=== PATIENT | female | born 1950 | race Caucasian/White ===

== ENCOUNTER 2024-08-04 23:57 | Emergency (ER) | payer OTHER ==
[~2024-08-04] VITALS: Ht 149.9 cm; Wt 113.4 kg
[2024-08-05] MEDS ORDERED: LISI10TA29 (00:26)
[2024-08-05] MEDS ORDERED: [UNRECOGNIZED DRUG - CODE] (00:26)
[2024-08-05] MEDS ORDERED: FERR324T11 (00:26)
[2024-08-05] MEDS ORDERED: GLIP10TA11 (00:26)
[2024-08-05 00:55] LABS: BASOPHILS # (AUTO) 0.1 K/UL (0.0-0.2); BASOPHILS % (AUTO) 0.5 % (0.0-2.0); DIFFERENTIAL COMMENT 0; EOSINOPHILS # (AUTO) 0.3 K/uL (0.0-0.7); EOSINOPHILS % (AUTO) 2.6 % (0.0-7.0); HEMATOCRIT 32.9 % (31.2-41.9); HEMOGLOBIN 10.1 g/dL (10.9-14.3); LYMPHOCYTES # (AUTO) 2.6 K/uL (0.8-4.8); LYMPHOCYTES % (AUTO) 24.9 % (20.5-51.5); MEAN CORPUSCULAR HEMOGLOBIN 20.3 uug (24.7-32.8); MEAN CORPUSCULAR HGB CONC 31 g/dL (32.3-35.6); MONOCYTES # (AUTO) 0.8 K/uL (0.1-1.30); NEUTROPHILS # (AUTO) 6.6 K/uL (1.8-8.9); PLATELET COUNT (AUTO) 300 K/uL (179-408); RED BLOOD CELL COUNT(AUTO) 4.98 MIL/uL (3.63-4.92); RED CELL DISTRIBUTION WIDTH 17.2 % (12.3-17.7); WHITE BLOOD COUNT (AUTO) 10.3 K/uL (3.8-11.8)
[2024-08-05 01:07] LABS: CALCIUM 9.3 mg/dL (8.5-10.1); CARBON DIOXIDE 27 mmol/L (21-32); CHLORIDE 104 mmol/L (98-107); CREATININE 0.7 mg/dL (0.6-1.3); GLUCOSE 151 mg/dL (74-106); SODIUM SERUM 140 mmol/L (136-145); UREA NITROGEN, BLOOD 16 mg/dL (7-18)
[2024-08-05 01:19] LABS: ALANINE AMINOTRANSFERASE 24 U/L (14-59); ALBUMIN 3.4 g/dL (3.4-5.0); ALKALINE PHOSPHATASE 117 U/L (50-136); ASPARTATE AMINOTRANSFERASE 19 U/L (15-37); BILIRUBIN,DIRECT 0.1 mg/dL (0.0-0.2); BILIRUBIN,TOTAL 0.4 mg/dL (0.2-1.0); NT-PRO BNP 30 pg/mL (0-125); TOTAL PROTEIN, SERUM 8.1 g/dL (6.4-8.2)
[2024-08-05 03:33] VITALS: BP 136/60; TEMP 97.8; O2SAT 100
== END 2024-08-05 03:34 | disposition home or self-care (01) ==
LOC: ER 08-05 00:39
DX: R06.00 Dyspnea, unspecified (principal); R07.9 Chest pain, unspecified; E11.9 Type 2 diabetes mellitus without complications; E78.5 Hyperlipidemia, unspecified; Z79.84 Long term (current) use of oral hypoglycemic drugs
CPT/HCPCS: 36415; 71045; 84484; 85025; A4606; A4663

== ENCOUNTER 2025-02-07 16:17 | Inpatient (IN) | payer OTHER, MEDICARE ==
[~2025-02-07] VITALS: Ht 147.3 cm; Wt 90.7 kg
[~2025-02-07 16:17] MED LIST: FERR324T11 PO; GLIP10TA11; LISI10TA29; [UNRECOGNIZED DRUG - CODE]
[2025-02-07] MEDS ORDERED: LOSA25TA27 PO (16:40)
[2025-02-07] MEDS ORDERED: GLIP5TAB26 PO (16:40)
[2025-02-07 16:52] LABS: PLATELET COUNT (AUTO) 286 K/uL (179-408); RED BLOOD CELL COUNT(AUTO) 4.62 MIL/uL (3.63-4.92); RED CELL DISTRIBUTION WIDTH 14.0 % (12.3-17.7); WHITE BLOOD COUNT (AUTO) 10.9 K/uL (3.8-11.8)
[2025-02-07] MEDS ORDERED: ONDA4TAB5 PO (16:56)
[2025-02-07] MEDS ORDERED: FAMO-132 PO (16:56)
[2025-02-07] MEDS ORDERED: POLY17PO4 PO (16:56)
[2025-02-07] MEDS ORDERED: LIDOCAINE VISCUS 2% 15 ML UDC ONE (17:03)
[2025-02-07] MEDS ORDERED: ONDANSETRON 4 MG/2 ML VIAL ONE (17:03)
[2025-02-07] MEDS ORDERED: MAG HYDROX/AL HYDROX/SIMETH 30 ML LIQUID UDC ONE (17:03)
[2025-02-07] MEDS ORDERED: FAMOTIDINE. 20 MG/2 ML VIAL IV ONE (17:04)
[2025-02-07 17:19] LABS: ASPARTATE AMINOTRANSFERASE 18 U/L (15-37); CREATININE 0.7 mg/dL (0.6-1.3); SODIUM SERUM 139 mmol/L (136-145); TOTAL PROTEIN, SERUM 8.0 g/dL (6.4-8.2); UREA NITROGEN, BLOOD 17 mg/dL (7-18)
[2025-02-07] MEDS: IV NORMAL SALINE 1000 ML BAG IV ONE ×2 (17:21→18:49)
[2025-02-07] MEDS: FAMOTIDINE. 20 MG/2 ML VIAL IV ONE (17:21)
[2025-02-07] MEDS: LIDOCAINE VISCUS 2% 15 ML UDC MM ONE (17:22)
[2025-02-07] MEDS: ONDANSETRON 4 MG/2 ML VIAL IV ONE ×2 (17:22→18:56)
[2025-02-07] MEDS: MAG HYDROX/AL HYDROX/SIMETH 30 ML LIQUID UDC PO ONE (17:22)
[2025-02-07 18:09] LABS: *BILIRUBIN,URIN NEGATIVE (NEGATIVE); *BLOOD, URINE 3+ (NEGATIVE); *CLARITY,URINE CLEAR (CLEAR); *COLOR,URINE YELLOW (YELLOW); *KETONES,URINE NEGATIVE (NEGATIVE); *PROTEIN,URINE 1+ (NEGATIVE); *UROBILINOGEN,URINE 0.2 E.U./dl (NORMAL); LEUKOCYTE ESTERASE ,URINE 3+ (NEGATIVE); NITRITE, URINE POSITIVE (NEGATIVE); UGLUCOSE NEGATIVE (NEGATIVE)
[2025-02-07] MEDS: METRONIDAZOLE 500 MG/NS 100 ML PIGGYBACK IV ONE (18:30)
[2025-02-07] MEDS ORDERED: LIDOCAINE 2% (GLYDO= UROJET) 10 ML JELLY MM ONE (18:31)
[2025-02-07] MEDS ORDERED: DEXTROSE 50% 50 ML DISP.SYRIN IV PRN (18:45)
[2025-02-07] MEDS: BLOOD SUGAR DIAGNOSTIC 1 EACH STRIP VI SCH (18:45)
[2025-02-07] MEDS ORDERED: ACETAMINOPHEN 325 MG TABLET PO PRN (18:45)
[2025-02-07] MEDS ORDERED: CEFTRIAXONE /D5W 50ML IVPB **ER PYXIS IV ONE (18:55)
[2025-02-07] MEDS ORDERED: MORPHINE SULFATE 4 MG/1 ML DISP.SYRIN ONE (18:56)
[2025-02-07] MEDS: MORPHINE SULFATE 4 MG/1 ML DISP.SYRIN IV ONE (18:58)
[2025-02-07] MEDS: CEFTRIAXONE 1 G in IV DEXTROSE 5% 50 ML IV ONE (19:00)
[2025-02-07] MEDS ORDERED: METRONIDAZOLE 500 MG/NS 100ML 100 ML IV ONE (19:51)
[2025-02-07] MEDS ORDERED: CEFEPIME HCL 1 G in IV DEXTROSE 5% 50 ML IV SCH (22:00)
[2025-02-07] MEDS ORDERED: SEVOFLURANE 250 ML BOTTLE ONE (22:10)
[2025-02-07] MEDS ORDERED: LIDOCAINE HCL 1% 20 ML VIAL ONE (22:16)
[2025-02-07] MEDS ORDERED: BUPIVACAINE/EPI PF 0.25% 10 ML VIAL IJ ONE (22:16)
[2025-02-07] MEDS ORDERED: PROPOFOL 200 MG/20 ML BOTTLE ONE (23:00)
[2025-02-07] MEDS ORDERED: FENTANYL CITRATE 250 MCG/5 ML AMPUL ONE (23:09)
[2025-02-07] MEDS ORDERED: SUCCINYLCHOLINE CHLORIDE 200 MG/10 ML VIAL ONE (23:09)
[2025-02-07] MEDS ORDERED: ROCURONIUM BROMIDE 50 MG/5 ML VIAL ONE (23:09)
[2025-02-08] MEDS ORDERED: METRONIDAZOLE 500 MG/NS 100ML 100 ML IV ONE (00:12)
[2025-02-08] MEDS ORDERED: ONDANSETRON 4 MG/2 ML VIAL IV PRN (01:45)
[2025-02-08] MEDS ORDERED: MEPERIDINE 25 MG/1 ML DISP.SYRIN IV PRN (01:45)
[2025-02-08] MEDS: IV NS 1000 ML 1,000 ML IV SCH (04:36)
[2025-02-08 06:00] VITALS: BP 132/69; TEMP 98.4; O2SAT 96
[2025-02-08] MEDS: INSULIN REGULAR, HUMAN 1000 UNIT/10 ML VIAL SQ PRN (06:09)
[2025-02-08 06:54] LABS: PLATELET COUNT (AUTO) 252 K/uL (179-408); RED BLOOD CELL COUNT(AUTO) 4.29 MIL/uL (3.63-4.92); RED CELL DISTRIBUTION WIDTH 13.8 % (12.3-17.7); WHITE BLOOD COUNT (AUTO) 14.1 K/uL (3.8-11.8)
[2025-02-08 07:10] LABS: ASPARTATE AMINOTRANSFERASE 19 U/L (15-37); CREATININE 0.9 mg/dL (0.6-1.3); SODIUM SERUM 142 mmol/L (136-145); TOTAL PROTEIN, SERUM 7.0 g/dL (6.4-8.2); UREA NITROGEN, BLOOD 11 mg/dL (7-18)
[2025-02-08] MEDS: CEFEPIME HCL 1 G in IV DEXTROSE 5% 50 ML IV ONE (07:30)
[2025-02-08] MEDS: CEFEPIME HCL 1 G in IV DEXTROSE 5% 50 ML IV SCH (09:11)
[2025-02-08 11:36] VITALS: BP 116/45; TEMP 98.4; O2SAT 97
[2025-02-08 15:36] VITALS: BP 140/62; TEMP 98.7; O2SAT 98
[2025-02-08 16:00] VITALS: O2SAT 98
[2025-02-08 19:10] VITALS: BP 121/43; TEMP 97.9; O2SAT 98
[2025-02-09 05:37] VITALS: O2SAT 98
[2025-02-09 06:36] VITALS: BP 116/44; TEMP 99.3; O2SAT 96
[2025-02-09 06:41] LABS: PLATELET COUNT (AUTO) 225 K/uL (179-408); RED BLOOD CELL COUNT(AUTO) 4.11 MIL/uL (3.63-4.92); RED CELL DISTRIBUTION WIDTH 13.4 % (12.3-17.7); WHITE BLOOD COUNT (AUTO) 10.6 K/uL (3.8-11.8)
[2025-02-09 06:53] LABS: CREATININE 0.5 mg/dL (0.6-1.3); SODIUM SERUM 144 mmol/L (136-145); UREA NITROGEN, BLOOD 11 mg/dL (7-18)
[2025-02-09] MEDS: POTASSIUM CHLORIDE 50 ML IV SCH (10:11)
[2025-02-09] MEDS ORDERED: CEFEPIME HCL 1 G in IV DEXTROSE 5% 50 ML IV SCH (11:00)
[2025-02-09] MEDS: MORPHINE SULFATE 2 MG/1 ML DISP.SYRIN IVP PRN (11:00)
[2025-02-09 11:59] VITALS: BP 126/60; TEMP 98.1; O2SAT 98
[2025-02-09] MEDS: CEFEPIME HCL 1 G in IV DEXTROSE 5% 50 ML IV SCH (14:34)
[2025-02-09 16:00] VITALS: BP 120/44; TEMP 98.5; O2SAT 99
[2025-02-09 16:15] VITALS: O2SAT 99
[2025-02-09] MEDS: SODIUM PHOSPHATE MM 15 MMOL in IV NORMAL SALINE 250 ML IV ONE (17:18)
[2025-02-09 19:48] VITALS: BP 122/52; TEMP 98.2; O2SAT 97
[2025-02-10 04:53] VITALS: BP 114/59; TEMP 98.6; O2SAT 98
[2025-02-10 06:43] LABS: PLATELET COUNT (AUTO) 222 K/uL (179-408); RED BLOOD CELL COUNT(AUTO) 4.20 MIL/uL (3.63-4.92); RED CELL DISTRIBUTION WIDTH 13.6 % (12.3-17.7); WHITE BLOOD COUNT (AUTO) 10.1 K/uL (3.8-11.8)
[2025-02-10 06:54] LABS: CREATININE 0.4 mg/dL (0.6-1.3); SODIUM SERUM 141 mmol/L (136-145); UREA NITROGEN, BLOOD 9 mg/dL (7-18)
[2025-02-10 10:56] VITALS: BP 121/59; TEMP 98; O2SAT 97
[2025-02-10 15:27] VITALS: BP 124/57; TEMP 97.9; O2SAT 96
[2025-02-10 19:00] VITALS: BP 143/67; TEMP 98.3; O2SAT 95
[2025-02-11 06:27] VITALS: BP 115/47; TEMP 98; O2SAT 94
[2025-02-11 11:00] VITALS: BP 123/55; TEMP 98.4; O2SAT 98
[2025-02-11 15:13] VITALS: BP 120/57; TEMP 98.4; O2SAT 100
[2025-02-11 19:35] VITALS: BP 135/55; TEMP 99.1; O2SAT 93
[2025-02-12 06:39] VITALS: BP 128/54; TEMP 98.8; O2SAT 98
[2025-02-12 10:55] VITALS: BP 132/56; TEMP 98.2; O2SAT 99
[2025-02-12 15:30] VITALS: BP 130/53; TEMP 98.2; O2SAT 96
[2025-02-12 16:15] VITALS: O2SAT 96
[2025-02-12 19:36] VITALS: BP 119/45; TEMP 97.8; O2SAT 98
[2025-02-12] MEDS: BLOOD SUGAR DIAGNOSTIC 1 EACH STRIP VI SCH (21:50)
[2025-02-13 05:25] VITALS: BP 121/97; TEMP 98.7; O2SAT 98
[2025-02-13 06:56] LABS: PLATELET COUNT (AUTO) 269 K/uL (179-408); RED BLOOD CELL COUNT(AUTO) 3.96 MIL/uL (3.63-4.92); RED CELL DISTRIBUTION WIDTH 13.5 % (12.3-17.7); WHITE BLOOD COUNT (AUTO) 8.5 K/uL (3.8-11.8)
[2025-02-13 07:28] LABS: CREATININE 0.4 mg/dL (0.6-1.3); SODIUM SERUM 141 mmol/L (136-145); UREA NITROGEN, BLOOD 9 mg/dL (7-18)
[2025-02-13 08:04] LABS: ASPARTATE AMINOTRANSFERASE 11 U/L (15-37); CREATININE 0.4 mg/dL (0.6-1.3); SODIUM SERUM 141 mmol/L (136-145); TOTAL PROTEIN, SERUM 6.4 g/dL (6.4-8.2); UREA NITROGEN, BLOOD 9 mg/dL (7-18)
[2025-02-13] MEDS: POTASSIUM CHLORIDE 20 MEQ POWDER PACKET GT ONE (09:58)
[2025-02-13 11:01] VITALS: BP 110/50; TEMP 98.4; O2SAT 94
[2025-02-13 14:14] VITALS: O2SAT 96
[2025-02-13 15:24] VITALS: BP 121/52; TEMP 98.4; O2SAT 96
[2025-02-13] MEDS: NEUTRA PHOS PACKET PO ONE (16:40)
[2025-02-13 20:00] VITALS: BP 127/53; TEMP 98.8
[2025-02-13] MEDS: IV NS 1000 ML 1,000 ML IV PRN (20:06)
[2025-02-14] MEDS: ONDANSETRON 4 MG/2 ML VIAL IV PRN (00:25)
[2025-02-14 00:57] VITALS: O2SAT 98
[2025-02-14 06:00] VITALS: BP 114/44; TEMP 97.8
[2025-02-14 07:10] LABS: PLATELET COUNT (AUTO) 270 K/uL (179-408); RED BLOOD CELL COUNT(AUTO) 4.12 MIL/uL (3.63-4.92); RED CELL DISTRIBUTION WIDTH 13.3 % (12.3-17.7); WHITE BLOOD COUNT (AUTO) 6.8 K/uL (3.8-11.8)
[2025-02-14 07:44] LABS: CREATININE 0.3 mg/dL (0.6-1.3); SODIUM SERUM 141 mmol/L (136-145); UREA NITROGEN, BLOOD 5 mg/dL (7-18)
[2025-02-14] MEDS: POTASSIUM CHLORIDE 20 MEQ POWDER PACKET PO ONE (10:41)
[2025-02-14 10:57] VITALS: BP 115/72; TEMP 98.4; O2SAT 98
[2025-02-14 15:09] VITALS: BP 132/57; TEMP 98.2; O2SAT 100
[2025-02-14] MEDS: NEOMY/BACITRAC/POLYMI OINT 28.35 GM TUBE TOP SCH (18:36)
[2025-02-14 19:00] VITALS: BP 134/59; TEMP 98.1; O2SAT 98
[2025-02-15 05:00] VITALS: BP 122/52; TEMP 98.2; O2SAT 98
[2025-02-15 05:41] VITALS: O2SAT 98
[2025-02-15 07:05] LABS: PLATELET COUNT (AUTO) 279 K/uL (179-408); RED BLOOD CELL COUNT(AUTO) 4.20 MIL/uL (3.63-4.92); RED CELL DISTRIBUTION WIDTH 13.2 % (12.3-17.7); WHITE BLOOD COUNT (AUTO) 7.2 K/uL (3.8-11.8)
[2025-02-15 07:30] LABS: CREATININE 0.5 mg/dL (0.6-1.3); SODIUM SERUM 143 mmol/L (136-145); UREA NITROGEN, BLOOD 5 mg/dL (7-18)
[2025-02-15] MEDS: LACTULOSE 20 G/30 ML LIQUID UDC PO ONE (08:45)
[2025-02-15 11:31] VITALS: BP 141/65; TEMP 98.9; O2SAT 93
== END 2025-02-15 15:05 | disposition home health service (06) | DRG 354 ==
LOC: ER 16:22 → MEDSURG3 20:00
PROVIDERS: ADMIT Internal Medicine; ATTEND Internal Medicine
PROC: 0DBU4ZZ Excision of Omentum, Percutaneous Endoscopic Approach (ICD-10-PCS; 2025-02-07)
PROC: 3E0T3BZ Introduction of Anesthetic Agent into Peripheral Nerves and Plexi, Percutaneous Approach (ICD-10-PCS; 2025-02-07)
PROC: 0D9680Z Drainage of Stomach with Drainage Device, Via Natural or Artificial Opening Endoscopic (ICD-10-PCS; 2025-02-07)
PROC: 0WQF4ZZ Repair Abdominal Wall, Percutaneous Endoscopic Approach (ICD-10-PCS; principal; 2025-02-07 22:30)
PROC: 05HC33Z Insertion of Infusion Device into Left Basilic Vein, Percutaneous Approach (ICD-10-PCS; 2025-02-08)
DX: K43.6 Other and unspecified ventral hernia with obstruction, without gangrene (principal); K56.0 Paralytic ileus; N39.0 Urinary tract infection, site not specified; Z68.41 Body mass index [BMI] 40.0-44.9, adult; E66.01 Morbid (severe) obesity due to excess calories; B96.1 Klebsiella pneumoniae [K. pneumoniae] as the cause of diseases classified elsewhere; E11.40 Type 2 diabetes mellitus with diabetic neuropathy, unspecified; Z79.84 Long term (current) use of oral hypoglycemic drugs; Z79.899 Other long term (current) drug therapy; N20.0 Calculus of kidney; K21.9 Gastro-esophageal reflux disease without esophagitis; K29.70 Gastritis, unspecified, without bleeding; E78.5 Hyperlipidemia, unspecified; K40.20 Bilateral inguinal hernia, without obstruction or gangrene, not specified as recurrent; I10 Essential (primary) hypertension; N73.6 Female pelvic peritoneal adhesions (postinfective); K75.81 Nonalcoholic steatohepatitis (NASH)
CPT/HCPCS: 36415; 71045; 83605; 83690; 83735; 84100; 85025; 85730; 87040; 87077; 87086; 94760; A4606; A4663; G0378; J0330; J0690; J0692; J0696; J1100; J1308; J2270; J2405; J3010; J3480; J3490; J7040